=== PATIENT | female | born 1950 | race Caucasian/White ===

== ENCOUNTER 2017-05-24 09:47 | Day surgery (SDC) | payer BC ==
[~2017-05-24] VITALS: Ht 144.8 cm; Wt 45.4 kg
[2017-05-24 11:57] VITALS: Ht 144.8 cm; Wt 45.4 kg
[2017-05-24] MEDS ORDERED: ALEN70TA30 PO (12:10)
[2017-05-24 13:15] VITALS: BP 133/63; PULSE 79; RESP 20
--- NOTE | 2017-05-24 13:16 | OPPN ---
Date/Time of Note Date/Time of Note DATE: 05/24/17 TIME: 13:14 Proc Note GI Procedure Date 05/24/17 Indication: screening/surveillance Pre-procedure Diagnosis Colonoscopy screening Post-procedure Diagnosis Negative all the way into cecum Flat polyp removed from rectosigmoid area it was 7-8 mm in diameter Procedure Performed: Colonoscopy Surgeon see signature line Fire Pot Operator none Anesthesia Type: moderate sedation Tourniquet Time none EBL none Transfusion required none Biopsy 1: Polyp Grafts/Implants none Tubes/Drains none Complication(s) none Disposition: PACU Procedure Description Report dictated AUGUSTINA PITTS MD May 24, 2017 13:16
[2017-05-24 13:46] VITALS: BP 96/48; RESP 20
[2017-05-24] MEDS ORDERED: FENTAnyl 50 MCG/ML VIAL ONE (15:00)
[2017-05-24] MEDS ORDERED: MIDAZOLAM 1 MG/ML 2 ML INJ ONE ×2 (15:01)
--- NOTE | 2017-05-24 15:18 | GILP ---
DATE OF PROCEDURE: 05/24/2017 PROCEDURE PERFORMED: Colonoscopy with biopsy. INDICATION: A 66-year-old female undergoing this procedure for screening colonoscopy. The risk of the procedure, related and unrelated complications, sedative risks, alternatives discussed and infor med consent was obtained. DESCRIPTION OF PROCEDURE: Patient was brought to the GI lab, sedated with Versed 4 mg and fentanyl 75 mg. After optimal sedation, digital examination was done which was normal. Pediatric colonoscop e passed with much ease into rectum and advanced through tortuous colon all the way into the cecum. Appendiceal orifice and IC valve were identified. Rest of the colon was normal. While coming out, mucosa thoroughly inspected. A small flat 7-8 mm polyp identified in the rectosig moid area. With jumbo biopsy forceps, the entire polyp was removed. The rest of the colon appeared normal. Clarity and cleanliness was good. IMPRESSION: 1. Flat polyp in the rectosigmoid area completely removed with the cold jumbo biopsy forceps. 2. Negative all the way into the cecum. 3. Clarity and cleanliness was good. 4. The patient also had melanosis coli. PLAN: To stay on a high fiber diet. Based on histopathology, we will decide regarding surveillance colonoscopy. If it is a known hyperplastic, then definitely patient needs colonoscopy in 5 years. Dictated By: AUGUSTINA CLEARY/KIMBERLEY Conf#: [id number] DID#: [id number] CC: AKI ZAIDI MD;*EndCC*
== END 2017-05-24 18:43 | disposition home or self-care (01) ==
LOC: GIL 09:47
PROVIDERS: ATTEND Internal Medicine Gastroenterology
DX: Z12.11 Encounter for screening for malignant neoplasm of colon (principal); D12.5 Benign neoplasm of sigmoid colon
CPT/HCPCS: 45380; J2250; J3010